=== PATIENT | female | born 1950 | race Caucasian/White ===

== ENCOUNTER 2016-11-26 10:37 | Emergency (ER) | payer OTHER, BC ==
[2016-11-26 10:46] VITALS: TEMP 97.7
--- NOTE | 2016-11-26 10:59 | CPEKG ---
Heart Rate: 106 RR Interval: 566 P-R Interval: 152 QRSD Interval: 86 QT Interval: 320 QTC Interval: 425 P [place]: 52 QRS [place]: 55 T Wave [place]: 2 EKG Severity - OTHERWISE NORMAL ECG - EKG Impression: SINUS TACHYCARDIA Electronically Signed By: Elio Hinson 26-Nov-2016 14:32:14
[2016-11-26] MEDS ORDERED: NS 1,000 ML IV ONE (11:21)
[2016-11-26] MEDS ORDERED: NS 500 ML IV ONE (11:26)
[2016-11-26 11:31] LABS: % IMMATURE GRANULYOCYTES 0.5 % (0.0-1.1); ABSOLUTE IMMATURE GRANULOCYTES 0.03 10^3/uL (0.00-0.10); ADD DIFF? NO; ADD MORPH? NO; ADD SCAN? NO; ATYPICAL LYMPHOCYTE FLAG 0 (0-99); FRAGMENT RBC FLAG 0 (0-99); HEMATOCRIT 46.6 % (38.0-47.0); HEMOGLOBIN 15.9 g/dL (12.6-16.3); LEFT SHIFT FLG 0 (0-99); LIPEMIA HEMOLYSIS FLAG 90 (0-99); MEAN CELL HEMOGLOBIN 31.1 pg (27.9-34.1); MEAN CELL HEMOGLOBIN CONCENTR. 34.1 g/dL (32.4-36.7); MEAN CELL VOLUME 91.2 fL (81.5-99.8); MEAN PLATELET VOLUME 11.3 fL (8.7-11.7); PLATELET CLUMPS FLAG 0 (0-99); PLATELET COUNT 168 10^3/uL (150-400); RED BLOOD CELL COUNT 5.11 10^6/uL (4.18-5.33)
--- NOTE | 2016-11-26 11:36 | EDPHY ---
H & P Time Seen by Provider: 11/26/16 11:11 HPI/ROS: CHIEF COMPLAINT: Rapid heart rate HISTORY OF PRESENT ILLNESS: Patient is noted intermittently rapid heart rate since September. 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 She denies chest pain or shortness of breath. Denies vomiting or diarrhea. She was recently taken off her metformin this past Thursday could she was getting some stomach upset and those symptoms have resolved. Not dizzy or lightheaded. No syncope. she does say she" feels crappy" today but not really any specifics. REVIEW OF SYSTEMS: Eye: no change in vision ENT: no sore throat Cardiac: HPI Pulmonary: no cough or SOB Abdomen: no vomiting, diarrhea, abdominal pain Musculoskeletal: no back pain Skin: no rash Neuro: no headache Constitutional: no fever : no urinary symptoms A comprehensive 10 point review of systems is otherwise negative aside from elements mentioned in the history of present illness. PAST MEDICAL HISTORY: Diabetes, hypertension, breast cancer, uterine fibroids Social history: Nonsmoker General Appearance: Alert and conversant, cooperative. Eyes: No scleral icterus. ENT, Mouth: Normal mucous membranes. Respiratory: Normal respiratory effort, breath sounds equal, lungs are clear to auscultation. Cardiovascular: Regular rate and rhythm. Heart rate 90 to 100 on my exam. Gastrointestinal: Abdomen is soft and non tender. Neurological: Alert and oriented x3. Normally conversant. Face symmetric, normal movement and sensation in all extremities. Skin: Warm and dry, no rashes. Musculoskeletal: No peripheral edema and no joint swelling. No calf tenderness. Psychiatric: Not agitated. Emergency Department course/MDM: EKG shows sinus rhythm without ischemic changes or other electrical abnormality. Plan for labs and chest x-ray and IV fluids. Results discussed with the patient. I think she is safe and stable to follow up as an outpatient and referred to Cardiology. I emphasized to her that we do not have a diagnosis of why she continues to be so tachycardic but I think it is safe to have her follow up as an outpatient. Discussed with Jannie Ogden from [facility] the patient's name and date will arrange outpatient cardiology follow-up including echo. Smoking Status: Never smoked Constitutional: Initial Vital Signs Temperature (C) 36.5 C 11/26/16 10:43 Heart Rate 112 H 11/26/16 10:43 Respiratory Rate 20 11/26/16 10:43 Blood Pressure 127/98 H 11/26/16 10:43 O2 Sat (%) 97 11/26/16 10:43 O2 Delivery Mode Room Air Allergies/Adverse Reactions: amoxicillin Allergy (Verified 11/26/16 10:42) liothyronine sodium [From Cytomel] Allergy (Verified 11/26/16 10:43) Home Medications: Medication Instructions Recorded GLIPIZIDE 11/26/16 Metformin HCl 11/26/16 Medical Decision Making - Diagnostics EKG Interpretation: 12-lead EKG interpreted by me; official reading is in trace master. My interpretation is sinus tachycardia rate 106 otherwise normal. Differential Diagnosis: Differential considered including but not limited to pulmonary embolism, dehydration, primary electrical dysrhythmia, hyperthyroid. - Data Points Laboratory Results: Laboratory Results 11/26/16 11:14 11/26/16 11:14 11/26/16 11/26/16 11/26/16 11:14 11:14 11:14 WBC RBC Hgb Hct MCV MCH MCHC RDW Plt Count MPV Neut % (Auto) Lymph % (Auto) Jones % (Auto) Eos % (Auto) Baso % (Auto) Nucleat RBC Rel Count Absolute Neuts (auto) Absolute Lymphs (auto) Absolute Monos (auto) Absolute Eos (auto) Absolute Basos (auto) Absolute Nucleated RBC Immature Gran % Immature Gran # D-Dimer < 0.27 ug/mLFEU ug/mLFEU (0.00-0.50) Sodium 141 mEq/L mEq/L (134-144) Potassium 4.0 mEq/L mEq/L (3.5-5.2) Chloride 105 mEq/L mEq/L (97-110) Carbon Dioxide 24 mEq/l mEq/l (22-31) Anion Gap 12 mEq/L mEq/L (8-16) BUN 13 mg/dL mg/dL (7-23) Creatinine 0.8 mg/dL mg/dL (0.6-1.0) Estimated GFR > 60 Glucose 220 mg/dL H mg/dL (70-100) Calcium 9.9 mg/dL mg/dL (8.5-10.4) Troponin I < 0.012 ng/mL ng/mL (0-0.034) TSH 1.650 uIU/mL uIU/mL (0.465-4.680) 11/26/16 11:14 WBC 6.52 10^3/uL 10^3/uL (3.80-9.50) RBC 5.11 10^6/uL 10^6/uL (4.18-5.33) Hgb 15.9 g/dL g/dL (12.6-16.3) Hct 46.6 % % (38.0-47.0) MCV 91.2 fL fL (81.5-99.8) MCH 31.1 pg pg (27.9-34.1) MCHC 34.1 g/dL g/dL (32.4-36.7) RDW 13.0 % % (11.5-15.2) Plt Count 168 10^3/uL 10^3/uL (150-400) MPV 11.3 fL fL (8.7-11.7) Neut % (Auto) 68.7 % % (39.3-74.2) Lymph % (Auto) 16.4 % % (15.0-45.0) Jones % (Auto) 13.2 % H % (4.5-13.0) Eos % (Auto) 0.9 % % (0.6-7.6) Baso % (Auto) 0.3 % % (0.3-1.7) Nucleat RBC Rel Count 0.0 % % (0.0-0.2) Absolute Neuts (auto) 4.48 10^3/uL 10^3/uL (1.70-6.50) Absolute Lymphs (auto) 1.07 10^3/uL 10^3/uL (1.00-3.00) Absolute Monos (auto) 0.86 10^3/uL H 10^3/uL (0.30-0.80) Absolute Eos (auto) 0.06 10^3/uL 10^3/uL (0.03-0.40) Absolute Basos (auto) 0.02 10^3/uL 10^3/uL (0.02-0.10) Absolute Nucleated RBC 0.00 10^3/uL 10^3/uL (0-0.01) Immature Gran % 0.5 % % (0.0-1.1) Immature Gran # 0.03 10^3/uL 10^3/uL (0.00-0.10) D-Dimer Sodium Potassium Chloride Carbon Dioxide Anion Gap BUN Creatinine Estimated GFR Glucose Calcium Troponin I TSH Medications Given: Discontinued Medications Sodium Chloride (Ns) 1,000 mls @ 0 mls/hr IV ONCE ONE PRN Reason: Wide Open Stop: 11/26/16 11:22 Last Admin: 11/26/16 11:38 Dose: 1,000 mls Sodium Chloride (Ns) 500 mls @ 0 mls/hr IV ONCE ONE PRN Reason: As Directed Stop: 11/26/16 11:27 Last Admin: 11/26/16 11:39 Dose: Not Given Departure - Departure Disposition: Home, Routine, Self-Care Clinical Impression: Sinus tachycardia Condition: Good Instructions: Tachycardia (ED) Referrals: Viridiana Kelly MD [Primary Care Provider] - As per Instructions Artemio Newton MD [Medical Doctor] - As per Instructions (cardiology referral for chronically elevated heart rate)
[2016-11-26 11:42] LABS: ANION GAP 12 mEq/L (8-16); CALCIUM 9.9 mg/dL (8.5-10.4); CARBON DIOXIDE 24 mEq/l (22-31); CHLORIDE 105 mEq/L (97-110); CREATININE 0.8 mg/dL (0.6-1.0); GLOMERULAR FILTRATION RATE > 60; GLUCOSE 220 mg/dL (70-100); SODIUM 141 mEq/L (134-144)
[2016-11-26 11:52] LABS: TROPONIN I < 0.012 ng/mL (0-0.034)
[2016-11-26 13:04] VITALS: BP 115/79; RESP 16
[2016-11-26 13:46] VITALS: PULSE 96; O2SAT 96
== END 2016-11-26 13:46 | disposition home or self-care (01) ==
DX: R00.0 Tachycardia, unspecified (principal); I10 Essential (primary) hypertension; E11.9 Type 2 diabetes mellitus without complications; Z85.3 Personal history of malignant neoplasm of breast; Z79.4 Long term (current) use of insulin

== ENCOUNTER → 2016-11-28 | Outpatient (CLI) | payer OTHER, BC | LOC: BHFA 11:00 | PROVIDERS: ATTEND Internal Medicine Cardiovascular Disease | DX: R00.0 Tachycardia, unspecified (principal); D35.00 Benign neoplasm of unspecified adrenal gland ==

== ENCOUNTER → 2017-01-09 | Outpatient (CLI) | payer OTHER, BC | LOC: BHFA 10:00 | PROVIDERS: ATTEND Internal Medicine Cardiovascular Disease | DX: R00.0 Tachycardia, unspecified (principal) ==

== ENCOUNTER 2018-03-15 13:08 | Emergency (ER) | payer OTHER, BC ==
[2018-03-15] MEDS ORDERED: NS 1,000 ML IV ONE (13:22)
--- NOTE | 2018-03-15 13:22 | EDPHY ---
H & P Stated Complaint: fever/uti Source: Patient, Old records Exam Limitations: No limitations - Medical/Surgical History Hx Asthma: No Hx Chronic Respiratory Disease: No Hx Diabetes: Yes Hx Cardiac Disease: No Hx Renal Disease: No Hx Cirrhosis: No Hx Alcoholism: No Hx HIV/AIDS: No Hx Splenectomy or Spleen Trauma: No Other PMH: diab/htn/breast cancer/uterine fibroids - Social History Smoking Status: Never smoked Time Seen by Provider: 03/15/18 13:17 HPI/ROS: HPI: This is a 67-year-old female who presents with Chief Complaint: Fever, UTI Location: Body Quality: Fever Duration: 4 days Signs and Symptoms: +fever, no nausea, no vomiting, no hematemesis, no blood in stool, no abdominal bloating, no diarrhea, no back pain, + urinary symptoms, no vaginal bleeding/discharge, no indigestion, no chest pain, no shortness of breath Timing: Acute, constant Severity: [id number] Context: Patient presents with her with complaints of 4 day history of fever T-max 103 today approximately 1 and 0.5 hr prior to arrival. Patient took aspirin with relief of the fever. She further reports that approximately 4 days ago she had some urinary burning and frequency. She does have a history of UTIs with the last 1 occurring in January. She denies any history of pyelonephritis, ureterolithiasis. She has not eaten anything today and reports that her blood sugar was 142 at home. She complains of decreased appetite but denies any nausea, vomiting, chills, fatigue. Modifying Factors: Aspirin Comment: ROS: see HPI Constitutional: No fever, no chills, no weight loss Eyes: No blurred vision Respiratory: No shortness of breath, no cough Cardiovascular: No chest pain, no palpitations Gastrointestinal: No nausea, no vomiting, no diarrhea, no hematemesis, no blood in stool Genitourinary: No dysuria, no blood in urine Extremities: No myalgias, no edema Neurologic: No weakness, no numbness Skin: No rashes, no petechiae Hematologic: No bruising, no bleeding MEDICAL/SURGICAL/SOCIAL HISTORY: Medical history: diabetes/htn/breast cancer/uterine fibroids Surgical history: Denies Social history: Hypertension. Family history noncontributory. CONSTITUTIONAL: Obese elderly female, awake and alert, no obvious distress HEENT: Atraumatic and normocephalic, PERRL, EOMI. Nares patent; no rhinorrhea; no nasal mucosal edema. Tympanic membranes clear. Oropharynx clear, no exudate and moist pink mucosa. Airway patent. No lymphadenopathy. No meningismus. Cardiovascular: Normal S1/S2, regular rate, regular rhythm, without murmur rub or gallop. PULMONARY/CHEST: Symmetrical and nontender. Clear to auscultation bilaterally. Good air movement. No accessory muscle usage. ABDOMEN: Soft, obesely rounded, nontender, no rebound, no guarding, no peritoneal signs, no masses or organomegaly. No CVAT. EXTREMITIES: 2/2 pulses, strength 5/5, no deformities, no clubbing, no cyanosis or edema. NEUROLOGICAL: no focal neuro deficits. GCS 15. SKIN: Warm and dry, no erythema. no rash. Good capillary refill. (Ira Trinh) Constitutional: Initial Vital Signs Temperature (C) 37.5 C 03/15/18 13:10 Heart Rate 105 H 03/15/18 13:10 Respiratory Rate 18 03/15/18 13:10 Blood Pressure 120/78 03/15/18 13:10 O2 Sat (%) 94 03/15/18 13:10 O2 Delivery Mode Room Air Allergies/Adverse Reactions: amoxicillin Allergy (Verified 03/16/18 10:09) Vomiting liothyronine sodium [From Cytomel] Allergy (Verified 03/16/18 10:09) Other-Enter Comments Home Medications: Medication Instructions Recorded Anastrozole [Arimidex 1 mg (*)] 1 mg PO HS 03/16/18 Ascorbic Acid [Vitamin C 500 mg 500 mg PO DAILY 03/16/18 (*)] Aspirin [Aspirin 325 mg (*)] 650 mg PO DAILY PRN 03/16/18 Bisoprolol Fumarate [Zebeta (*)] 2.5 mg PO DAILY 03/16/18 Herbals/Supplements -Info Only 1 each PO DAILY 03/16/18 Hydrochlorothiazide [HCTZ (*)] 6.25 mg PO DAILY 03/16/18 Vitamin B Complex [Vitamin B 1 each PO DAILY 03/16/18 Complex (OTC)] glipiZIDE XL [Glucotrol Xl 2.5 mg 2.5 mg PO DAILY 03/16/18 (*)] Medical Decision Making ED Course/Re-evaluation: Vital signs reviewed and temperature 37.5 degree C upon arrival with a heart rate of 105. Will evaluate for pyelonephritis, urosepsis. Labs, blood culture, lactic acid, urinalysis ordered Given 1 L normal saline. 1345: Labs reviewed. No signs of anemia/EUN/electrolyte imbalance/sepsis. Creatinine 1.2, on 11/09/2017 was 0.9 mild acute renal insufficiency noted. Platelet count 130 AK. WBCs 12 with left shift. 1545: Urine sample finally able to be obtained by nurse using an in and out catheterization. 1600: Urinalysis shows infection; sent for urine culture; IV Rocephin 2 g given Kidney ultrasound ordered to evaluate for abscess, hydronephrosis, ureterolithiasis. ED decision to consult for admission for pyelonephritis and diabetic elderly patient. 1610: Patient politely refused patient despite my urging. 1652: Called by radiologist, Dr. Rae, who reports that renal ultrasound shows no signs of abscess, hydronephrosis, ureterolithiasis, stranding. Chart review shows last 3 urine cultures grew E coli that were resistant to Bactrim prescription given for Levaquin 750 mg times 10 days. Vital signs improved at discharge. Tachycardia resolved. Again offered patient admission and she refused. She understands the risk of sepsis, acute kidney injury. This patient was seen under the supervision of my secondary supervising physician. I evaluated care for this patient independently. Discussed this patient with Dr. Da Silva who did not see the patient. (Ira Trinh) Differential Diagnosis: Adult fever including but not limited to viral syndromes including influenza, urinary tract infection, pneumonia and sepsis. (Ira Trinh) Other Provider: Received call from [facility] at 1920 after patient and Ira Trinh gone. They are concerned about severe interaction between levofloxacin and glipizide. I reviewed patient's chart and previous urine cx which grew out E.coli sensitive to Macrobid. I have authorized switching to Macrobid and patient not here to review stated allergy to amoxicillin and possible cephalosporin allergy overlap. (Dao Hussein) - Data Points Laboratory Results: Laboratory Results 03/15/18 13:20 03/15/18 13:20 Microbiology Results: MICROBIOLOGY 03/15/18 15:40 Urine,Catheterized Urine Culture - Preliminary Gram Neg Geoff Lactose A&P Mechanic 03/15/18 13:20 Blood Blood Culture - Preliminary Gram Negative Geoff Gram Positive Cocci Clusters 03/15/18 13:20 Blood Blood Panel (PCR) - Final Escherichia Coli Staph Coagulase Negative 03/15/18 13:20 Blood Blood Panel (PCR) - Final Medications Given: Discontinued Medications Sodium Chloride (Ns) 1,000 mls @ 0 mls/hr IV ONCE ONE; Wide Open PRN Reason: Protocol Stop: 03/15/18 13:23 Last Admin: 03/15/18 13:31 Dose: 1,000 mls Ceftriaxone Sodium 2 gm/ (Sodium Chloride) 50 mls @ 100 mls/hr IV EDNOW ONE PRN Reason: Protocol Stop: 03/15/18 16:28 Last Admin: 03/15/18 16:41 Dose: 50 mls Departure - Departure Disposition: Home, Routine, Self-Care Clinical Impression: Pyelonephritis Condition: Good Instructions: Kidney Infection (ED) Additional Instructions: Consume a minimum of 8-10 glasses of water or electrolyte fluid replacement drinks that include Gatorade, Powerade, Pedialyte. Start taking Levaquin tomorrow morning at 8 or 9:00 a.m.. Take antibiotic as directed until complete. Do not skip doses. Your urinalysis will be sent for culture. If the antibiotic that you have been prescribed does not cover the bacteria, you will be notified by the emergency room and another antibiotic will be called in for you. Return at once for any worsening symptoms or concerns. Referrals: PCP Not In,Dictionary [Medical Doctor] - 1-2 days without fail
[2018-03-15 13:40] LABS: PLATELET COUNT 138 10^3/uL (150-400)
[2018-03-15 16:07] VITALS: BP 135/79
== END 2018-03-15 17:25 | disposition home or self-care (01) ==
LOC: EDUNIT# → EDBD
DX: N12 Tubulo-interstitial nephritis, not specified as acute or chronic (principal); E86.9 Volume depletion, unspecified; I10 Essential (primary) hypertension; E11.9 Type 2 diabetes mellitus without complications; Z79.82 Long term (current) use of aspirin; Z85.3 Personal history of malignant neoplasm of breast
CPT/HCPCS: 76770; 96361; 96365; 99285; J0696

== ENCOUNTER 2018-03-16 08:16 | Inpatient (IN) | payer OTHER, BC ==
--- NOTE | 2018-03-16 08:42 | EDPHY ---
H & P Stated Complaint: seen yesterday for uti/today with diarrhea/asked to come to ed for +ecoli Time Seen by Provider: 03/16/18 08:25 HPI/ROS: Chief Complaint: Fatigue, urinary tract infection, positive blood cultures HPI: 67-year-old woman who presented to the emergency department yesterday with 3-4 days of general fatigue, fevers at home, recent history of recurrent urinary tract infections. Patient's blood cultures grew out E coli this morning in the patient was called and instructed to return to the hospital for further evaluation. She states she continues to feel increasingly fatigued in the well. She did have some diarrhea this morning but there was no dark tarry stools or blood. Persistent nausea but no vomiting. Generalized malaise is persistent. No vomiting or diarrhea. She has not taken any of further antibiotics since her IV dose yesterday afternoon. No lightheadedness or fainting. No chest pain or shortness of breath. ROS: 10 point Review of Systems is negative except as noted in the HPI. PMH: Type 2 diabetes, hypertension, breast cancer, 2015 Social History: No smoking, no alcohol, no recreational drug use Family History: non-contributory Physical Exam: Gen: Awake, Alert, No Distress HEENT: Nose: no rhinorrhea Eyes: PERRLA, EOMI Mouth: Moist mucosa Neck: Supple, no JVD Chest: nontender, lungs clear to auscultation Heart: S1, S2 normal, no murmur Abd: Soft, non-tender, no guarding Back: no CVA tenderness, no midline tenderness Ext: no edema, non-tender Skin: no rash Neuro: CN II-XII intact, Sensation grossly intact, Strength 5/5 in bilateral upper and lower extremities - Personal History Current Tetanus Diphtheria and Acellular Pertussis (TDAP): Unsure - Medical/Surgical History Hx Asthma: No Hx Chronic Respiratory Disease: No Hx Diabetes: Yes Hx Cardiac Disease: No Hx Renal Disease: No Hx Cirrhosis: No Hx Alcoholism: No Hx HIV/AIDS: No Hx Splenectomy or Spleen Trauma: No Other PMH: diab/htn/breast cancer/uterine fibroids - Social History Smoking Status: Never smoked Constitutional: Initial Vital Signs Temperature (C) 36.5 C 03/16/18 08:22 Heart Rate 90 03/16/18 08:22 Respiratory Rate 18 03/16/18 08:22 Blood Pressure 108/71 03/16/18 08:22 O2 Sat (%) 94 03/16/18 08:22 O2 Delivery Mode Room Air Allergies/Adverse Reactions: amoxicillin Allergy (Verified 03/16/18 08:20) liothyronine sodium [From Cytomel] Allergy (Verified 03/16/18 08:20) Home Medications: Medication Instructions Recorded GLIPIZIDE 11/26/16 Macrobid 03/16/18 Medical Decision Making ED Course/Re-evaluation: 67-year-old woman the TI and bacteremia. White count is a little more elevated today. Lactic acid is 2.0. Her hemodynamics are completely normal. She does not meet SIRS criteria. I have given Rocephin here. I have discussed with hospitalist. Will admit to under Dr. Grey to [facility]. - Data Points Laboratory Results: Laboratory Results 03/16/18 08:30 03/16/18 08:30 03/16/18 03/16/18 03/16/18 08:30 08:30 08:30 WBC 13.96 10^3/uL H 10^3/uL (3.80-9.50) RBC 4.51 10^6/uL 10^6/uL (4.18-5.33) Hgb 13.6 g/dL g/dL (12.6-16.3) Hct 39.9 % % (38.0-47.0) MCV 88.5 fL fL (81.5-99.8) MCH 30.2 pg pg (27.9-34.1) MCHC 34.1 g/dL g/dL (32.4-36.7) RDW 13.6 % % (11.5-15.2) Plt Count 116 10^3/uL L 10^3/uL (150-400) MPV 11.2 fL fL (8.7-11.7) Neut % (Auto) 87.1 % H % (39.3-74.2) Lymph % (Auto) 4.6 % L % (15.0-45.0) [place] % (Auto) 6.9 % % (4.5-13.0) Eos % (Auto) 0.0 % L % (0.6-7.6) Baso % (Auto) 0.2 % L % (0.3-1.7) Nucleat RBC Rel Count 0.0 % % (0.0-0.2) Absolute Neuts (auto) 12.15 10^3/uL H 10^3/uL (1.70-6.50) Absolute Lymphs (auto) 0.64 10^3/uL L 10^3/uL (1.00-3.00) Absolute Monos (auto) 0.97 10^3/uL H 10^3/uL (0.30-0.80) Absolute Eos (auto) 0.00 10^3/uL L 10^3/uL (0.03-0.40) Absolute Basos (auto) 0.03 10^3/uL 10^3/uL (0.02-0.10) Absolute Nucleated RBC 0.00 10^3/uL 10^3/uL (0-0.01) Immature Gran % 1.2 % H % (0.0-1.1) Seg Neutrophils % 80.0 % % Band Neutrophils % 2.0 % % Lymphocytes % 7.0 % % Monocytes % 11.0 % % Eosinophils % 0 % % Basophils % 0 % % Metamyelocytes % 0 % % Myelocytes % 0 % % Promyelocytes % 0 % % Blast Cells % 0 % % Immature Gran # 0.17 10^3/uL H 10^3/uL (0.00-0.10) Absolute Seg Neuts 11.17 10^/uL H 10^/uL (1.70-6.50) Absolute Band Neuts 0.28 10^3/uL 10^3/uL (0.00-0.70) Absolute Lymphocytes 0.98 10^3/uL L 10^3/uL (1.00-3.00) Absolute Monocytes 1.54 10^3/uL H 10^3/uL (0.30-0.80) Absolute Eosinophils 0.00 10^3/uL L 10^3/uL (0.03-0.40) Absolute Basophils 0.00 10^3/uL L 10^3/uL (0.02-0.10) Absolute Metamyelocyte 0.00 10^3/mL 10^3/mL (0.00-0.00) Absolute Myelocytes 0.00 10^3/mL 10^3/mL (0.00-0.00) Absolute Promyelocytes 0.00 10^3/uL 10^3/uL (0.00-0.00) Absolute Plasma Cells 0.00 10^3/uL 10^3/uL (0.00-0.00) Absolute Blast Cells 0.00 10^3/uL 10^3/uL (0.00-0.00) Plasma Cells % 0 % % Platelet Estimate DECREASED L (ADEQ) Polychromasia 1+ H Oval Macrocytes 1+ H VBG Lactic Acid 2.0 mmol/L mmol/L (0.7-2.1) Sodium 137 mEq/L mEq/L (135-145) Potassium 3.7 mEq/L mEq/L (3.3-5.0) Chloride 103 mEq/L mEq/L (97-110) Carbon Dioxide 19 mEq/l L mEq/l (22-31) Anion Gap 15 mEq/L mEq/L (8-16) BUN 19 mg/dL mg/dL (7-23) Creatinine 1.1 mg/dL H mg/dL (0.6-1.0) Estimated GFR 49 Glucose 191 mg/dL H mg/dL (70-100) Calcium 8.7 mg/dL mg/dL (8.5-10.4) Medications Given: Discontinued Medications Ceftriaxone Sodium 2 gm/ (Sodium Chloride) 50 mls @ 100 mls/hr IV EDNOW ONE PRN Reason: Protocol Stop: 03/16/18 09:08 Last Admin: 03/16/18 09:09 Dose: 50 mls Departure - Departure Disposition: [facility] Inpatient Acute Clinical Impression: Urinary tract infection, Bacteremia Condition: Fair Referrals: Viridiana Kelly MD [Primary Care Provider] - As per Instructions
[2018-03-16 08:53] LABS: PLATELET COUNT 116 10^3/uL (150-400)
[2018-03-16] MEDS ORDERED: ONDANSETRON 4 MG/2 ML VIAL IVP ONE (09:22)
[2018-03-16] MEDS ORDERED: oxyCODONE IR 5 MG TAB PO PRN (10:00)
[2018-03-16] MEDS ORDERED: HYDROmorphONE/DILAUDID 1 MG/ML INJ IVP PRN (10:00)
[2018-03-16] MEDS ORDERED: D50W 25 GM/50 ML SYR IVP PRN (10:00)
[2018-03-16] MEDS ORDERED: ACETAMINOPHEN 325 MG TAB PO PRN (10:00)
[2018-03-16] MEDS ORDERED: PROMETHAZINE HCL 25 MG/ML INJ IVP PRN (10:00)
[2018-03-16] MEDS: INSULIN LISPRO 100 UNIT/ML SC SCH ×2 (11:14→19:31)
--- NOTE | 2018-03-16 12:16 | PDGENHP ---
History and Physical - Chief Complaint fatigue, uti, positive blood cultures - History of Present Illness 67 yo F with PMH of breast cancer and DM presenting with c/o fatigue, fever in the setting of recently diagnosed UTI and positive blood cultures. She was originally seen in ER 03/15 for several days of fever and urinary complaints including frequency and burning. She was diagnosed with UTI and sent home with prescription for levofloxacin. Her sxs did not improve significantly however and today she was called by ER and notified that blood cultures that were drawn at the time of her ER visit were now positive for bacteria. History Information - Allergies/Home Medication List Allergies/Adverse Reactions: amoxicillin Allergy (Verified 03/16/18 10:09) Vomiting liothyronine sodium [From Cytomel] Allergy (Verified 03/16/18 10:09) Other-Enter Comments Home Medications: Anastrozole [Arimidex 1 mg (*)] 1 mg PO HS 03/16/18 [Last Taken 3 Days Ago ~] Ascorbic Acid [Vitamin C 500 mg (*)] 500 mg PO DAILY 03/16/18 [Last Taken Unknown] Aspirin [Aspirin 325 mg (*)] 650 mg PO DAILY PRN 03/16/18 [Last Taken Unknown] Bisoprolol Fumarate [Zebeta (*)] 2.5 mg PO DAILY 03/16/18 [Last Taken 3 Days Ago ~03/13/18] Herbals/Supplements -Info Only 1 each PO DAILY 03/16/18 [Last Taken Unknown] Hydrochlorothiazide [HCTZ (*)] 6.25 mg PO DAILY 03/16/18 [Last Taken 3 Days Ago ~03/13/18] Vitamin B Complex [Vitamin B Complex (OTC)] 1 each PO DAILY 03/16/18 [Last Taken Unknown] glipiZIDE XL [Glucotrol Xl 2.5 mg (*)] 2.5 mg PO DAILY 03/16/18 [Last Taken 3 Days Ago ~03/13/18] I have personally reviewed and updated: family history, medical history, social history, surgical history - Past Medical History cancer (breast --sp surgery and xrt, dx 2014), diabetes type 2, hypertension - Surgical History Reports: no pertinent surgical hx - Family History Positive for: non-pertinent - Social History Smoking Status: Never smoked Alcohol Use: Rarely Drug Use: None Review of Systems Review of Systems: ROS: 10pt was reviewed & negative except for what was stated in HPI & below Physical Exam Physical Exam: Temp Pulse Resp BP Pulse Ox 36.6 C 80 15 96/59 L 91 L 03/16/18 10:14 03/16/18 10:14 03/16/18 10:14 03/16/18 10:14 03/16/18 10:14 Constitutional: no apparent distress, appears nourished, obese Eyes: PERRL, anicteric sclera Ears, Nose, Mouth, Throat: moist mucous membranes, hearing normal Cardiovascular: regular rate and rhythym, no murmur, rub, or gallop, No edema Respiratory: no respiratory distress, no rales or rhonchi, clear to auscultation Gastrointestinal: normoactive bowel sounds, soft, non-tender abdomen Genitourinary: no bladder tenderness Skin: warm, normal color Musculoskeletal: full muscle strength Neurologic: AAOx3 Psychiatric: interacting appropriately, not anxious, not encephalopathic Lab Data & Imaging Review 03/16/18 08:30 03/16/18 08:30 WBC 13.96 10^3/uL (3.80-9.50) H 03/16/18 08:30 RBC 4.51 10^6/uL (4.18-5.33) 03/16/18 08:30 Hgb 13.6 g/dL (12.6-16.3) 03/16/18 08:30 Hct 39.9 % (38.0-47.0) 03/16/18 08:30 MCV 88.5 fL (81.5-99.8) 03/16/18 08:30 MCH 30.2 pg (27.9-34.1) 03/16/18 08:30 MCHC 34.1 g/dL (32.4-36.7) 03/16/18 08:30 RDW 13.6 % (11.5-15.2) 03/16/18 08:30 Plt Count 116 10^3/uL (150-400) L 03/16/18 08:30 MPV 11.2 fL (8.7-11.7) 03/16/18 08:30 Neut % (Auto) 87.1 % (39.3-74.2) H 03/16/18 08:30 Lymph % (Auto) 4.6 % (15.0-45.0) L 03/16/18 08:30 [place] % (Auto) 6.9 % (4.5-13.0) 03/16/18 08:30 Eos % (Auto) 0.0 % (0.6-7.6) L 03/16/18 08:30 Baso % (Auto) 0.2 % (0.3-1.7) L 03/16/18 08:30 Nucleat RBC Rel Count 0.0 % (0.0-0.2) 03/16/18 08:30 Absolute Neuts (auto) 12.15 10^3/uL (1.70-6.50) H 03/16/18 08:30 Absolute Lymphs (auto) 0.64 10^3/uL (1.00-3.00) L 03/16/18 08:30 Absolute Monos (auto) 0.97 10^3/uL (0.30-0.80) H 03/16/18 08:30 Absolute Eos (auto) 0.00 10^3/uL (0.03-0.40) L 03/16/18 08:30 Absolute Basos (auto) 0.03 10^3/uL (0.02-0.10) 03/16/18 08:30 Absolute Nucleated RBC 0.00 10^3/uL (0-0.01) 03/16/18 08:30 Immature Gran % 1.2 % (0.0-1.1) H 03/16/18 08:30 Seg Neutrophils % 80.0 % 03/16/18 08:30 Band Neutrophils % 2.0 % 03/16/18 08:30 Lymphocytes % 7.0 % 03/16/18 08:30 Monocytes % 11.0 % 03/16/18 08:30 Eosinophils % 0 % 03/16/18 08:30 Basophils % 0 % 03/16/18 08:30 Metamyelocytes % 0 % 03/16/18 08:30 Myelocytes % 0 % 03/16/18 08:30 Promyelocytes % 0 % 03/16/18 08:30 Blast Cells % 0 % 03/16/18 08:30 Immature Gran # 0.17 10^3/uL (0.00-0.10) H 03/16/18 08:30 Absolute Seg Neuts 11.17 10^/uL (1.70-6.50) H 03/16/18 08:30 Absolute Band Neuts 0.28 10^3/uL (0.00-0.70) 03/16/18 08:30 Absolute Lymphocytes 0.98 10^3/uL (1.00-3.00) L 03/16/18 08:30 Absolute Monocytes 1.54 10^3/uL (0.30-0.80) H 03/16/18 08:30 Absolute Eosinophils 0.00 10^3/uL (0.03-0.40) L 03/16/18 08:30 Absolute Basophils 0.00 10^3/uL (0.02-0.10) L 03/16/18 08:30 Absolute Metamyelocyte 0.00 10^3/mL (0.00-0.00) 03/16/18 08:30 Absolute Myelocytes 0.00 10^3/mL (0.00-0.00) 03/16/18 08:30 Absolute Promyelocytes 0.00 10^3/uL (0.00-0.00) 03/16/18 08:30 Absolute Plasma Cells 0.00 10^3/uL (0.00-0.00) 03/16/18 08:30 Absolute Blast Cells 0.00 10^3/uL (0.00-0.00) 03/16/18 08:30 Plasma Cells % 0 % 03/16/18 08:30 Platelet Estimate DECREASED (ADEQ) L 03/16/18 08:30 Polychromasia 1+ H 03/16/18 08:30 Oval Macrocytes 1+ H 03/16/18 08:30 VBG Lactic Acid 2.0 mmol/L (0.7-2.1) 03/16/18 08:30 Sodium 137 mEq/L (135-145) 03/16/18 08:30 Potassium 3.7 mEq/L (3.3-5.0) 03/16/18 08:30 Chloride 103 mEq/L (97-110) 03/16/18 08:30 Carbon Dioxide 19 mEq/l (22-31) L 03/16/18 08:30 Anion Gap 15 mEq/L (8-16) 03/16/18 08:30 BUN 19 mg/dL (7-23) 03/16/18 08:30 Creatinine 1.1 mg/dL (0.6-1.0) H 03/16/18 08:30 Estimated GFR 49 03/16/18 08:30 Glucose 191 mg/dL (70-100) H 03/16/18 08:30 POC Glucose 175 mg/dL (70-100) H 03/16/18 11:13 Calcium 8.7 mg/dL (8.5-10.4) 03/16/18 08:30 Assessment & Plan Assessment: Urinary tract infection (Acute) Bacteremia (Acute) 67 yo F presenting with UTI and bacteremia # e coli bacteremia: with cultures positive that were obtained in ER yesterday, final sensitivities pending. Started on ctx, repeat blood cultures will be obtained in am to check for clearance. Source urinary as next. # UTI: with urine cultures not obtained in ER but urine cultures from today showing GNR, presumably e coli as above. # DM: will hold oral hypoglycemics and start SSI # leukocytosis: otherwise not meeting criteria for sepsis, will trend # observation status Patient new to my care. Old records reviewed and summarized as above. Care plan reviewed with ER doctor as above.
[2018-03-16] MEDS: ONDANSETRON DISINTEGRATING 4 MG TAB PO PRN ×2 (14:28→20:12)
--- NOTE | 2018-03-16 15:31 | ASMTCMCOM ---
CM Note CM Note Notes: Pt admitted for UTI with cultures pos for bacteremia. Pt's DC needs unclear at this time. CM to follow. Date Signed: 03/16/2018 03:30 PM Electronically Signed By:Dalia Hernandez LCSW
[2018-03-16] MEDS: NS 1,000 ML IV SCH (20:29)
[2018-03-16] MEDS ORDERED: ANASTROZOLE 1 MG TAB PO SCH (21:00)
[2018-03-17] MEDS: ONDANSETRON DISINTEGRATING 4 MG TAB PO PRN (04:43)
[2018-03-17 04:55] LABS: PLATELET COUNT 96 10^3/uL (150-400)
[2018-03-17] MEDS ORDERED: PANTOPRAZOLE SODIUM 40 MG VIAL IVP ONE (08:57)
[2018-03-17] MEDS ORDERED: ENOXAPARIN 40 MG/0.4 ML SYR SC SCH (09:00)
--- NOTE | 2018-03-17 09:00 | HOSPPROG ---
Hospitalist Progress Note Assessment/Plan: # e. coli bacteremia - d/t UTI; no perinephric abscess - cont rocephin pending sens # UTI - d/t e. coli - treatment as above # N/V/epigastric pain - possibly related to above, but somewhat chronic - poor PO intake - cont IVF # DM - - hold PO meds, cont SSI insulin # leukocytosis - resolved # elevated SCr - recheck tomorrow # thrombocytopenia - suspect d/t infection; recheck # anemia - lower than previous - recheck tomorrow # DVT ppx - hold lovenox with low plts - SCDs Subjective: c/o epigastric pain, N/V Objective: Vital Signs Temp Pulse Resp BP Pulse Ox 37.0 C 90 19 107/74 96 03/17/18 08:42 03/17/18 08:42 03/17/18 03:54 03/17/18 08:42 03/17/18 08:42 Laboratory Results 03/17/18 04:30 03/16/18 03/17/18 03/18/18 05:59 05:59 05:59 Intake Total 850 Output Total 800 Balance 50 chart reviewed US reviewed - Physical Exam Constitutional: no apparent distress, appears nourished Cardiovascular: regular rate and rhythym, no murmur, rub, or gallop Respiratory: no respiratory distress, no rales or rhonchi, clear to auscultation Gastrointestinal: soft, non-tender abdomen, no palpable masses, No guarding, No rebound, No distension ICD10 Worksheet Patient Problems: Problems Problem Status Onset Bacteremia Acute Urinary tract infection Acute
[2018-03-17] MEDS: ASCORBIC ACID 500 MG TAB PO SCH (09:34)
[2018-03-17] MEDS: VITAMIN B COMPLEX 1 EA CAP/TAB PO SCH (09:35)
[2018-03-17] MEDS: BISOPROLOL FUMARATE 5 MG TAB PO SCH ×2 (09:37→10:06)
[2018-03-17] MEDS: INSULIN LISPRO 100 UNIT/ML SC SCH ×3 (09:48→17:49)
[2018-03-17] MEDS: ONDANSETRON 4 MG/2 ML VIAL IVP PRN ×2 (12:53→19:30)
[2018-03-17] MEDS: NS 1,000 ML IV SCH (19:30)
[2018-03-17] MEDS: ANASTROZOLE 1 MG TAB PO SCH (21:49)
[2018-03-18] MEDS: NS 1,000 ML IV SCH (04:42)
[2018-03-18 06:30] LABS: PLATELET COUNT 100 10^3/uL (150-400)
[2018-03-18] MEDS ORDERED: POLYETHYLENE GLYCOL 3350 17 GM PKT PO PRN (08:44)
[2018-03-18] MEDS ORDERED: BISACODYL 10 MG SUPP PR PRN (08:44)
[2018-03-18] MEDS ORDERED: MAGNESIUM HYDROXIDE 30 ML UDCUP PO PRN (08:44)
[2018-03-18] MEDS ORDERED: LACTULOSE 20 GM/30 ML UDCUP PO PRN (08:44)
--- NOTE | 2018-03-18 09:04 | HOSPPROG ---
Hospitalist Progress Note Assessment/Plan: # e. coli bacteremia - d/t UTI; no perinephric abscess - sens to rocephin and levaquin # UTI/pyelo - treatment as above # N/V/epigastric pain - unclear if related to above - better today - cont protonix - still not taking much PO # DM - - hold PO meds, cont SSI insulin # leukocytosis - resolved # elevated SCr - better today # thrombocytopenia - seemed to kush today # anemia - stabilized, will need outpatient f/u # hypoNa - will follow tomorroy # hypoK - replete with IVF # DVT ppx - start lovenox Subjective: feels slightly better than yesterday, still not eating much; abd pain better Objective: Vital Signs Temp Pulse Resp BP Pulse Ox 36.6 C 82 16 121/79 H 92 03/18/18 07:34 03/18/18 07:34 03/18/18 07:34 03/18/18 07:34 03/18/18 07:34 Laboratory Results 03/18/18 04:40 03/18/18 04:40 03/17/18 03/18/18 03/19/18 05:59 05:59 05:59 Intake Total 850 2924 Output Total 800 1250 450 Balance 50 1674 -450 high risk with e. coli bacteremia - Physical Exam Constitutional: no apparent distress, appears nourished Cardiovascular: regular rate and rhythym, no murmur, rub, or gallop Respiratory: no respiratory distress, no rales or rhonchi, clear to auscultation Gastrointestinal: normoactive bowel sounds, soft, non-tender abdomen, No guarding, No rebound, No distension ICD10 Worksheet Patient Problems: Problems Problem Status Onset Urinary tract infection Acute Bacteremia Acute
--- NOTE | 2018-03-18 09:40 | PDMN ---
Medical Necessity Medical necessity: Change to IP, as of 03/17/18, per MD; los >2 mn for ongoing management of UTI w/bacteremia & persistent N/V & epigastric pain; requiring IV abx, IVFs & IV antiemetics; hx diabetes; per progress note & order 03/17/18
[2018-03-18] MEDS: BISOPROLOL FUMARATE 5 MG TAB PO SCH (11:22)
[2018-03-18] MEDS: VITAMIN B COMPLEX 1 EA CAP/TAB PO SCH (11:22)
[2018-03-18] MEDS: ASCORBIC ACID 500 MG TAB PO SCH (11:22)
[2018-03-18] MEDS: ENOXAPARIN 40 MG/0.4 ML SYR SC SCH (11:25)
[2018-03-18] MEDS: INSULIN LISPRO 100 UNIT/ML SC SCH ×3 (11:59→18:55)
[2018-03-18] MEDS: SENNOSIDES/DOCUSATE SODIUM TAB PO SCH ×2 (12:00→23:09)
[2018-03-18] MEDS: NS W/ 20 KCl/L 1,000 ML IV SCH (14:52)
[2018-03-18] MEDS: ONDANSETRON DISINTEGRATING 4 MG TAB PO PRN ×2 (14:52→19:53)
[2018-03-18] MEDS: ANASTROZOLE 1 MG TAB PO SCH (23:00)
[2018-03-19] MEDS: NS W/ 20 KCl/L 1,000 ML IV SCH (06:51)
[2018-03-19] MEDS: INSULIN LISPRO 100 UNIT/ML SC SCH ×2 (07:46→18:24)
[2018-03-19] MEDS: BISOPROLOL FUMARATE 5 MG TAB PO SCH (10:23)
[2018-03-19] MEDS: VITAMIN B COMPLEX 1 EA CAP/TAB PO SCH (10:23)
[2018-03-19] MEDS: ASCORBIC ACID 500 MG TAB PO SCH (10:23)
[2018-03-19] MEDS: ENOXAPARIN 40 MG/0.4 ML SYR SC SCH (10:24)
[2018-03-19] MEDS: SENNOSIDES/DOCUSATE SODIUM TAB PO SCH ×2 (10:24→20:33)
--- NOTE | 2018-03-19 12:14 | HOSPPROG ---
Hospitalist Progress Note Assessment/Plan: # e. coli bacteremia - d/t UTI; no perinephric abscess - sens to rocephin and levaquin, cont rocephin for now - plan 14 day course - stop IVF today # UTI/pyelo - treatment as above # N/V/epigastric pain - resolved; suspect that this was d/t her UTI, but also improved on protonix # mild hypoxia - suspect atelectasis; - mobilize, IS # DM - hold PO meds, cont SSI insulin # leukocytosis - resolved # elevated SCr - better today # thrombocytopenia - seemed to kush today # anemia - stabilized, will need outpatient f/u # hypoNa - resolved # hypoK - replete with IVF # DVT ppx - start lovenox # dispo - expect 1-2 more days Subjective: feels better, but not 100% Objective: Vital Signs Temp Pulse Resp BP Pulse Ox 36.8 C 74 16 116/78 96 03/19/18 07:15 03/19/18 10:23 03/19/18 07:15 03/19/18 10:23 03/19/18 07:15 Laboratory Results 03/18/18 04:40 03/19/18 04:08 03/18/18 03/19/18 03/20/18 05:59 05:59 05:59 Intake Total 2924 941 Output Total 1250 1740 550 Balance 6305 -170 -516 - Physical Exam Constitutional: other (tired, lying in bed) Cardiovascular: regular rate and rhythym, no murmur, rub, or gallop Respiratory: no respiratory distress, reduced air movement (mild at bases), inspiratory crackles (bilat bases), No rhonchi Gastrointestinal: soft, non-tender abdomen, no palpable masses, No guarding, No rebound, No distension ICD10 Worksheet Patient Problems: Problems Problem Status Onset Urinary tract infection Acute Bacteremia Acute
--- NOTE | 2018-03-19 13:47 | ASMTCMCOM ---
CM Note CM Note Notes: Pt continues to recover. Her D/C is expected in 1-2 more days. No CM needs have been identified. Independent D/C is anticipated. CM to follow. D/C Plan: Anticipate independent. Date Signed: 03/19/2018 01:47 PM Electronically Signed By:Gisell Tubbs
[2018-03-19] MEDS ORDERED: PAPAYA ENZYME PO PRN (20:15)
[2018-03-19] MEDS: ANASTROZOLE 1 MG TAB PO SCH (20:32)
[2018-03-20 06:19] LABS: PLATELET COUNT 149 10^3/uL (150-400)
[2018-03-20] MEDS: VITAMIN B COMPLEX 1 EA CAP/TAB PO SCH (10:15)
[2018-03-20] MEDS: BISOPROLOL FUMARATE 5 MG TAB PO SCH (10:15)
[2018-03-20] MEDS: ENOXAPARIN 40 MG/0.4 ML SYR SC SCH (10:18)
[2018-03-20] MEDS: INSULIN LISPRO 100 UNIT/ML SC SCH ×4 (10:20→18:02)
[2018-03-20] MEDS: SENNOSIDES/DOCUSATE SODIUM TAB PO SCH ×2 (10:22→21:03)
[2018-03-20] MEDS: ASCORBIC ACID 500 MG TAB PO SCH (10:23)
--- NOTE | 2018-03-20 11:07 | HOSPPROG ---
Hospitalist Progress Note Assessment/Plan: 67-year-old admitted with weakness and failure to thrive found of have a UTI with bacteremia secondary to E coli. She continues to be quite weak today with poor p.o. Intake # e. coli bacteremia - d/t UTI; no perinephric abscess * Continue ceftriaxone while in the hospital and transitioned to p.o. Levaquin on discharge she will need 14 days from March 17 when her blood cultures cleared. * Due to severe weakness and deconditioning from the above diagnosis will do PT and OT today to see if she needs home care sheet, she may need an additional midnight stay due to comorbidities and weakness # nausea vomiting and epigastric pain, resolved. # mild hypoxic respiratory failure on supplemental oxygen. Will do room air challenge today # diabetes currently on sliding scale insulin when eating normally can resume her p.o. Meds on discharge # anemia: Stable will need outpatient follow-up, no acute bleeding noted # thrombocytopenia, resolving with improvement in her infection. # mild kidney injury due to her infection, improved and at baseline. # DVT ppx - start lovenox # dispo - expect 1-2 more days Subjective: Patient new to me and chart reviewed. She really has not ambulated much out of the room since admission. She is quite quite weak and deconditioned but denies any other significant issues at this time. Will need PT and OT as well as eating better Objective: Vital Signs Temp Pulse Resp BP Pulse Ox 36.6 C 70 14 124/79 H 90 L 03/20/18 08:41 03/20/18 08:41 03/20/18 08:41 03/20/18 08:41 03/20/18 08:41 Laboratory Results 03/20/18 05:10 03/19/18 04:08 03/19/18 03/20/18 03/21/18 05:59 05:59 05:59 Intake Total 941 1330 Output Total 1740 2350 1300 Balance -799 -1020 -1300 - Physical Exam Constitutional: not in pain Eyes: PERRL Ears, Nose, Mouth, Throat: moist mucous membranes Cardiovascular: regular rate and rhythym Respiratory: no respiratory distress Gastrointestinal: soft, non-tender abdomen Genitourinary: no bladder fullness Skin: warm Musculoskeletal: generalized weakness Neurologic: AAOx3, weakness Psychiatric: interacting appropriately ICD10 Worksheet Patient Problems: Problems Problem Status Onset Bacteremia Acute Urinary tract infection Acute
[2018-03-20] MEDS: ANASTROZOLE 1 MG TAB PO SCH (20:31)
[2018-03-20] MEDS: ONDANSETRON 4 MG/2 ML VIAL IVP PRN (20:31)
--- NOTE | 2018-03-21 09:37 | PDHOMEO2F ---
Home Oxygen Face to Face Home Orders: I certify that a physician or a nurse practitioner or physician's contract administrative assistant has had a [id number] encounter with this patient on the date of this order due to the diagnosis listed, which relates to the primary reason the patient requires home oxygen. Alternative treatments have been tried, or considered, and deemed ineffective. It is anticipated that supplemental oxygen will result in improvement with treatment. Home oxygen qualifying diagnosis: sepsis, bacteremia, atelectesis due to abdominal pain SpO2 on room air (%): 88 Frequency of home oxygen needed: continuous Home oxygen liters per minute: 2 Home oxygen delivery device: nasal cannula Concentrator: Yes E-tanks for mobility and back up: No I certify that, based on these findings, the home oxygen is medically necessary for this patient for the following length of time. Length of time home oxygen needed: 1 month (repeat room air challange at home in a month)
--- NOTE | 2018-03-21 09:45 | ASDISCHSUM ---
Discharge Information Plan Status:Home with No Needs Medically Cleared to Leave:03/21/2018 Discharge Date:03/21/2018 CM D/C Disposition:Home, Routine, Self-Care ADT D/C Disposition:Home, Routine, Self-Care Projected Discharge Date:03/21/2018 Transportation at D/C:Family Discharge Delay Reason: Follow-Up Date:03/21/2018 Discharge Slot: Final Diagnosis: Placement Information Patient Contact Information Contact Name:SAMANTHA Relationship: Address:[address] City:[place] Alternate Phone: [facility]/Zip Code:[place] [address] Email: Financial Information Financial Class:Medicare Primary Plan Desc:MEDICARE INPATIENT Primary Plan Number:[id number] Secondary Plan Desc: OUT OF [facility] Secondary Plan Number:[id number] Assessment Information LACE LACE Length of stay for Answers: 4-6 days current admission Acuity / Level of Answers: Yes Care: Did the patient have an inpatient admission? Comorbidities - select Answers: Any tumor (including all that apply lymphoma or leukemia) Diabetes (uncontrolled or controlled) Other Notes: HTN # of Emergency department Answers: 1-2 visits in the last 6 months Score: 12 Date Signed: 03/21/2018 09:44 AM Electronically Signed By:Kathy Panda RN [facility] CM Progress Note CM Note CM Note Notes: Pt admitted for UTI with cultures pos for bacteremia. Pt's DC needs unclear at this time. CM to follow. Date Signed: 03/16/2018 03:30 PM Electronically Signed By:Dalia Hernandez LCSW [facility] CM Progress Note CM Note CM Note Notes: Pt continues to recover. Her D/C is expected in 1-2 more days. No CM needs have been identified. Independent D/C is anticipated. CM to follow. D/C Plan: Anticipate independent. Date Signed: 03/19/2018 01:47 PM Electronically Signed By:Gisell Tubbs Case Management Discharge Plan Note Case Management Discharge Discharge Order Complete? Answers: Yes Patient to Obtain Answers: Independently Medications Transportation Arranged Answers: Family/Friends Discharge Comments Notes: 03/21/2018 Case Management Note Pt to discharge independent with follow up as directed. Date Signed: 03/21/2018 09:44 AM Electronically Signed By:Kathy Panda RN Intervention Information
[2018-03-21] MEDS: SENNOSIDES/DOCUSATE SODIUM TAB PO SCH (10:45)
[2018-03-21] MEDS: INSULIN LISPRO 100 UNIT/ML SC SCH ×2 (10:45→13:40)
[2018-03-21] MEDS: ENOXAPARIN 40 MG/0.4 ML SYR SC SCH (10:47)
[2018-03-21] MEDS: VITAMIN B COMPLEX 1 EA CAP/TAB PO SCH (10:49)
[2018-03-21] MEDS: ASCORBIC ACID 500 MG TAB PO SCH (10:49)
[2018-03-21] MEDS: BISOPROLOL FUMARATE 5 MG TAB PO SCH (10:50)
--- NOTE | 2018-03-21 11:35 | GDS ---
[f rep st] DISCHARGE SUMMARY DIAGNOSES: 1. Urinary tract infection complicated by Escherichia coli bacteremia. 2. Deconditioning. 3. Hypoxic respiratory failure secondary to sepsis and atelectasis, improving. 4. Hypothyroidism. PROCEDURES DONE: Abdomen and pelvic ultrasound showing no obstructive uropathy or cause for UTI note d. HOSPITAL COURSE: The patient is a 67-year-old who was admitted with UTI and weakness. She was found to be bacteremic with E coli which was sensitive to fluoroquinolones. She was initially treated wit h IV ceftriaxone and improved throughout her hospitalization. Her blood cultures were negative on and she will need a 2-week course of antibiotics following that negative blood culture. She h as slowly improved. Her nausea has improved, and she is eating and drinking better. However, she is still deconditioned and will need physical therapy as an outpatient. CONDITION ON DISCHARGE: Good. She has been afebrile, heart rate 70, blood pressure 140/90, 93% on r oom air; although, she did desaturate to 88% on room air at nighttime. She will be discharged home w ith home oxygen and she does have a sleep study scheduled through her primary care office. I suspect she may have sleep apnea and this is not an acute issue. DISCHARGE MEDICATIONS: Please see discharge medication form. FOLLOWUP: She should follow up with her primary care provider in a week. Continue her antibiotics. I did tell her of potential side effects of the Levaquin and gave her a prescription for antiemetics . Total time spent with patient on day of discharge and coordination of care is 35 minutes. /[id number]/MODL
[2018-03-21] MEDS: ONDANSETRON DISINTEGRATING 4 MG TAB PO PRN (12:07)
[2018-03-21 13:30] VITALS: BP 126/81
--- NOTE | 2018-03-25 15:25 | PQFORM ---
PHYSICIAN QUERY FORM Needs Your Response This query form is being sent to you to assure this patient record is coded properly. 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 Please clarify which Diagnosis this patient had. ___ Sepsis _x_ Bacteremia ___ Other (Please clarify ) ___ Unable to Determine Thank You Jennifer MCCLURE Fish [employer]er INSTRUCTIONS FOR RESPONSE: Answer question by clicking on the "Edit Document" button. Move cursor to area below the stars. When complete, hit "Save." Click on the "Sign" button, then click "Sign" again. Type in your PIN and hit "Enter." MTDD
== END 2018-03-21 14:48 | disposition home or self-care (01) | DRG 689 ==
LOC: INTOOBSV 09:22 → F1N 10:10 → OBSVTOIN 03-17 09:37
PROVIDERS: ADMIT Internal Medicine; ATTEND Internal Medicine
DX: N39.0 Urinary tract infection, site not specified (principal); R78.81 Bacteremia; J96.91 Respiratory failure, unspecified with hypoxia; B96.20 Unspecified Escherichia coli [E. coli] as the cause of diseases classified elsewhere; E87.1 Hypo-osmolality and hyponatremia; E87.6 Hypokalemia; D69.6 Thrombocytopenia, unspecified; E03.9 Hypothyroidism, unspecified; E11.9 Type 2 diabetes mellitus without complications; Z79.4 Long term (current) use of insulin; I10 Essential (primary) hypertension; Z85.3 Personal history of malignant neoplasm of breast
CPT/HCPCS: 96365; 97161-GP; 97166-GO; G0378; G8978-GP-CI; G8979-GP-CH; G8987-GO-CJ; G8988-GO-CI; J0696; J1170; J1650; J2405; J2550

== ENCOUNTER 2018-03-26 18:05 | Emergency (ER) | payer OTHER, BC ==
[2018-03-26] MEDS ORDERED: NS 1,000 ML IV ONE (19:28)
--- NOTE | 2018-03-26 19:33 | EDPHY ---
H & P Smoking Status: Never smoked Time Seen by Provider: 03/26/18 19:18 HPI/ROS: HPI Fatigue. 67-year-old female by private vehicle with her . This patient was recently admitted to our hospital for urinary tract infection and E coli bacteremia. She was discharged about 5 days ago. She has been on a 10 day course of Levaquin since that time. She reports that she has been compliant with her antibiotics. She reports that since this morning she has had progressive fatigue throughout the day. She denies any other complaint. She does states that she feels very tired. She states that she has been drinking enough fluid. No other associated signs or symptoms. She has not been significantly physically active recently. ROS: Constitutional: No fever, no chills. As above. Eyes: No discharge. No changes in vision. ENT: No sore throat. No nasal congestion or rhinorrhea. Respiratory: No cough. No shortness of breath. Cardiac: No chest pain, no palpitations. Gastrointestinal: No abdominal pain, no vomiting, no diarrhea. Genitourinary: No hematuria. No dysuria or increased frequency with urination. Musculoskeletal: No back pain. No neck pain. No myalgias or arthralgias. Skin: No rashes. Neurological: No headache. No focal weakness or altered sensation. Past medical history: Diabetes, breast cancer, hypertension, uterine fibroids, as above. Social history: Here with her . Nonsmoker. No alcohol. Physical Exam: General Appearance: Alert, no distress. This patient is responding to questions appropriately and in full sentences. This patient appears well- hydrated and well-nourished. Eyes: Pupils equal and round no pallor or injection. No lid edema, erythema or injection. Respiratory: There are no retractions, lungs are clear to auscultation with good air movement bilaterally. Cardiovascular: Regular rate and rhythm. No murmur. Gastrointestinal: Abdomen is soft and nontender, no masses, bowel sounds normal. No focal tenderness at McBurney's point. No Low sign. Neurological: Motor sensory function is grossly intact. Cranial nerves are normal. Gait is normal. Skin: Warm and dry, no rashes. Musculoskeletal: Neck is supple and nontender. Extremities are symmetrical. All joints range without pain or impingement. Psychiatric: No agitation. No depression. Database: EKG: EKG time is 7:41 p.m.; EKG shows a narrow complex normal sinus rhythm with a ventricular rate of 92. The NC, QRS, QT intervals are within normal limits. There are no ST-T wave changes indicative of ischemic or injury pattern. No evidence of right heart strain. Interpreted by me. Imaging: Procedures: Emergency department course: Triage vital signs reviewed. She is afebrile. She is moderately hypertensive. She is mildly tachycardic. Vital signs otherwise normal. An IV was placed. She will be started on IV normal saline with 1 L to be given over the next hour. Blood cultures will be repeated. Urinalysis with urine culture will be repeated as well. Repeat vital signs at 8:00 p.m.. Patient mildly hypertensive. Tachycardia resolved. Vital signs otherwise normal. 8:45 p.m., patient re-evaluated. Resting comfortably at this time. Blood pressure currently 147/83. athletic monitor shows a narrow complex sinus rhythm with ventricular rate of 80. Room air pulse oximetry 95%. I discussed the results of her emergency department workup. These results are reassuring. She has about a 3rd of her L of IV normal saline left. She feels comfortable going home. She is on an appropriate antibiotic, levofloxacin, she has 5 days left in her levofloxacin course. Plan will be to repeat her venous lactate when she has completed her IV fluids. If this is normalized I feel she is safe for discharge to home with follow-up with her primary care physician on Thursday. She lives near the hospital and can easily return here over the weekend if her condition worsens. Her care will be turned over to Dr. Atif Dai at 9:00 p.m.. Differential Diagnosis: The differential diagnosis on this patient includes but is not limited to viral syndrome, medication reaction, urinary tract infection, dehydration. Urosepsis unlikely. This represents a partial list of diagnoses considered. These considerations are based on history, physical exam, past history, reassessment and diagnostic testing. (Alma Pratt) Constitutional: Initial Vital Signs Temperature (C) 36.4 C 03/26/18 18:07 Heart Rate 117 H 03/26/18 18:07 Respiratory Rate 20 03/26/18 18:07 Blood Pressure 152/98 H 03/26/18 18:07 O2 Sat (%) 96 03/26/18 18:07 O2 Delivery Mode Room Air Allergies/Adverse Reactions: amoxicillin Allergy (Verified 03/26/18 18:10) Vomiting liothyronine sodium [From Cytomel] Allergy (Verified 03/26/18 18:10) Other-Enter Comments Home Medications: Medication Instructions Recorded Anastrozole [Arimidex 1 mg (*)] 1 mg PO HS 03/16/18 Ascorbic Acid [Vitamin C 500 mg 500 mg PO DAILY 03/16/18 (*)] Aspirin [Aspirin 325 mg (*)] 650 mg PO DAILY PRN 03/16/18 Bisoprolol Fumarate [Zebeta (*)] 2.5 mg PO DAILY 03/16/18 Herbals/Supplements -Info Only 1 each PO DAILY 03/16/18 Hydrochlorothiazide [HCTZ (*)] 6.25 mg PO DAILY 03/16/18 Vitamin B Complex [Vitamin B 1 each PO DAILY 03/16/18 Complex (OTC)] glipiZIDE XL [Glucotrol Xl 2.5 mg 2.5 mg PO DAILY 03/16/18 (*)] Papaya 2 tab PO PRN PRN 03/19/18 Promethazine HCl [Phenergan 12.5mg 6.25 - 12.5 mg PO Q8 PRN #10 tablet 03/21/18 tab] levOFLOXACIN [levAQUIN (*)] 750 mg PO DAILY #10 tab 03/21/18 Medical Decision Making ED Course/Re-evaluation: Care signed over to me by Dr. Pratt at 9:00 p.m.. Plan is to repeat lactate which was elevated at 2.2. Patient received a L of saline. Plan is discharge with continuing of Levaquin if the repeat lactate is normal. 9:40 p.m. Lactate is 0.8. Plan is discharge. Patient seen by me at 9:40 p.m. And she stable. Patient, her , and I discussed laboratory evaluation, treatment plan including criteria for return importance of follow-up and further evaluation. They expressed understanding and agreement (Atif Dai) - Data Points Laboratory Results: Laboratory Results 03/26/18 19:49 03/26/18 19:49 03/26/18 03/26/18 03/26/18 21:10 19:49 19:49 WBC 7.55 10^3/uL 10^3/uL (3.80-9.50) RBC 4.53 10^6/uL 10^6/uL (4.18-5.33) Hgb 13.7 g/dL g/dL (12.6-16.3) Hct 40.8 % % (38.0-47.0) MCV 90.1 fL fL (81.5-99.8) MCH 30.2 pg pg (27.9-34.1) MCHC 33.6 g/dL g/dL (32.4-36.7) RDW 14.2 % % (11.5-15.2) Plt Count 299 10^3/uL 10^3/uL (150-400) MPV 10.0 fL fL (8.7-11.7) Neut % (Auto) 66.7 % % (39.3-74.2) Lymph % (Auto) 17.6 % % (15.0-45.0) [place] % (Auto) 12.5 % % (4.5-13.0) Eos % (Auto) 1.1 % % (0.6-7.6) Baso % (Auto) 0.5 % % (0.3-1.7) Nucleat RBC Rel Count 0.0 % % (0.0-0.2) Absolute Neuts (auto) 5.04 10^3/uL 10^3/uL (1.70-6.50) Absolute Lymphs (auto) 1.33 10^3/uL 10^3/uL (1.00-3.00) Absolute Monos (auto) 0.94 10^3/uL H 10^3/uL (0.30-0.80) Absolute Eos (auto) 0.08 10^3/uL 10^3/uL (0.03-0.40) Absolute Basos (auto) 0.04 10^3/uL 10^3/uL (0.02-0.10) Absolute Nucleated RBC 0.00 10^3/uL 10^3/uL (0-0.01) Immature Gran % 1.6 % H % (0.0-1.1) Immature Gran # 0.12 10^3/uL H 10^3/uL (0.00-0.10) VBG Lactic Acid 0.8 mmol/L mmol/L (0.7-2.1) Sodium 134 mEq/L L mEq/L (135-145) Potassium 3.9 mEq/L mEq/L (3.3-5.0) Chloride 102 mEq/L mEq/L (97-110) Carbon Dioxide 25 mEq/l mEq/l (22-31) Anion Gap 7 mEq/L L mEq/L (8-16) BUN 15 mg/dL mg/dL (7-23) Creatinine 1.0 mg/dL mg/dL (0.6-1.0) Estimated GFR 55 Glucose 186 mg/dL H mg/dL (70-100) Calcium 9.5 mg/dL mg/dL (8.5-10.4) Urine Color Urine Appearance Urine pH Ur Specific [place] Urine Protein Urine Ketones Urine Blood Urine Nitrate Urine Bilirubin Urine Urobilinogen Ur Leukocyte Esterase Urine RBC Urine WBC Ur Epithelial Cells Urine Glucose 03/26/18 03/26/18 19:49 19:30 WBC RBC Hgb Hct MCV MCH MCHC RDW Plt Count MPV Neut % (Auto) Lymph % (Auto) [place] % (Auto) Eos % (Auto) Baso % (Auto) Nucleat RBC Rel Count Absolute Neuts (auto) Absolute Lymphs (auto) Absolute Monos (auto) Absolute Eos (auto) Absolute Basos (auto) Absolute Nucleated RBC Immature Gran % Immature Gran # VBG Lactic Acid 2.2 mmol/L H mmol/L (0.7-2.1) Sodium Potassium Chloride Carbon Dioxide Anion Gap BUN Creatinine Estimated GFR Glucose Calcium Urine Color PALE YELLOW Urine Appearance CLEAR Urine pH 6.0 (5.0-7.5) Ur Specific [place] 1.006 (1.002-1.030) Urine Protein NEGATIVE (NEGATIVE) Urine Ketones NEGATIVE (NEGATIVE) Urine Blood NEGATIVE (NEGATIVE) Urine Nitrate NEGATIVE (NEGATIVE) Urine Bilirubin NEGATIVE (NEGATIVE) Urine Urobilinogen NEGATIVE EU EU (0.2-1.0) Ur Leukocyte Esterase NEGATIVE (NEGATIVE) Urine RBC 3-5 /hpf H /hpf (0-3) Urine WBC 1-3 /hpf /hpf (0-3) Ur Epithelial Cells TRACE /lpf /lpf (NONE-1+) Urine Glucose NEGATIVE (NEGATIVE) Medications Given: Discontinued Medications Sodium Chloride (Ns) 1,000 mls @ 0 mls/hr IV ONCE ONE; Wide Open PRN Reason: Protocol Stop: 03/26/18 19:29 Last Admin: 03/26/18 19:51 Dose: 1,000 mls Departure - Departure Clinical Impression: Fatigue Condition: Good Instructions: Dehydration (ED), Fatigue (ED) Additional Instructions: Read and follow provided instructions. Follow-up with your primary care physician on Thursday for re-evaluation as discussed. Continue Levaquin as prescribed through entire course of treatment. Return to the emergency department for worsening symptoms, fever, weakness, vomiting or other serious concerns. Referrals: Viridiana Kelly MD [Primary Care Provider] - As per Instructions
--- NOTE | 2018-03-26 19:44 | CPEKG ---
Heart Rate: 92 RR Interval: 652 P-R Interval: 148 QRSD Interval: 78 QT Interval: 376 QTC Interval: 466 P [place]: 42 QRS [place]: 36 T Wave [place]: 12 EKG Severity - BORDERLINE ECG - EKG Impression: SINUS RHYTHM EKG Impression: PROBABLE LEFT ATRIAL ABNORMALITY Electronically Signed By: Alma Pratt 26-Mar-2018 21:11:53
[2018-03-26 20:09] LABS: PLATELET COUNT 299 10^3/uL (150-400)
[2018-03-26 22:03] VITALS: BP 154/96
== END 2018-03-26 22:03 | disposition home or self-care (01) ==
DX: R53.83 Other fatigue (principal); I10 Essential (primary) hypertension; E11.9 Type 2 diabetes mellitus without complications; E86.9 Volume depletion, unspecified; Z79.82 Long term (current) use of aspirin; Z85.3 Personal history of malignant neoplasm of breast

== ENCOUNTER → 2018-04-07 | Outpatient (CLI) | payer OTHER, BC | LOC: FIMAGING 07:32 | PROVIDERS: ATTEND Family Medicine | DX: R16.0 Hepatomegaly, not elsewhere classified (principal); K76.0 Fatty (change of) liver, not elsewhere classified; Z85.3 Personal history of malignant neoplasm of breast ==